=== PATIENT | female | born 1995 | race Caucasian/White ===

== ENCOUNTER 2023-09-13 22:27 | Emergency (ER) | payer SELFPAY ==
[2023-09-13 22:30] VITALS: BP 113/79
[2023-09-13] MEDS: DUONEB 3 ML INH ×2 (22:34→23:47)
[2023-09-13 23:30] VITALS: BP 112/65
[2023-09-14 00:30] VITALS: BP 110/62
--- NOTE | 2023-09-14 00:32 | ED.GENMED ---
History of Present Illness
General
Chief Complaint: Breathing Problem
Source: patient and family
Exam Limitations: none
Time Seen by Provider: 09/14/23 00:00
History of Present Illness
History of Present Illness:
Pleasant 27-year-old female presents with difficulty breathing. She reports shortness of breath with cough. Denies fever or chills. Patient has a history of asthma. Ran out of albuterol. Denies chest pain abdominal pain headache nausea or
vomiting.
Past History
Past History
ED Past Medical History: Asthma, Psychiatric (Depression) and Other (Irritable bowel syndrome, IBS, anemia, Migraines)
ED Past Surgical History: Other (Dental surgeries)
Social History
Tobacco: Non-smoker
Alcohol: None
Drug: None
Personal: Single
Living: with family
Review of Systems
Review of Systems
Allergies reviewed?: Yes
Other source history: family
All Other Systems: ROS reviewed and negative except as documented in HPI and ROS
Constitutional: Reports no symptoms
EENT: Reports no symptoms
Respiratory: Reports cough and trouble breathing
Cardiac: Reports no symptoms
ABD/GI: Reports no symptoms
: Reports no symptoms
Musculoskeletal: Reports no symptoms
Skin: Reports no symptoms
Neurological: Reports no symptoms
Endocrine: Reports no symptoms
Hematologic/Lymphatic: Reports no symptoms
Psychiatric: Reports no symptoms
Phy Exam
Physical Exam
Physical Exam:
Physical Exam
Vital signs and allergy list reviewed and agreed with.
GENERAL: Alert , in minimal to no apparent distress after breathing treatment
EYE: pupils equal, EOMI, anicteric
NECK: Supple, no significant adenopathy. No masses. Trachea midline
ENT: Oropharynx is clear, mmm.
CARDIAC: Regular rate and rhythm . No M/R/G
LUNGS: Clear breath sounds bilaterally, no acute respiratory distress, no wheezes/rales/rhonchi
ABDOMEN: Soft, without focal tenderness, no r/g,
NEUROLOGICAL: Alert and oriented, no focal neuro deficits
SKIN: Warm and dry, skin intact.
MUSCULOSKELETAL: No edema, well perfused. Moves all 4 extremities
PSYCH: Normal and appropriate interaction.
Course
Orders/Labs/Results
Orders:
Orders
09/13/23 22:31
Ipratropium/Albuterol Sulfate [Duoneb] 3 ml .ROUTE .STK-MED ONE
09/13/23 22:32
CR Chest - 2 Views Urgent
Comment:
Reason For Exam: SOB
09/13/23 22:33
Ipratropium/Albuterol Sulfate [Duoneb] 3 ml INH R NOW ONE
09/13/23 23:40
Ipratropium/Albuterol Sulfate [Duoneb] 3 ml INH R NOW ONE
09/14/23 00:29
Dexamethasone Pf [Decadron] 10 mg PO NOW STA
Vital Signs
Initial and Last Documented VS:
Initial Vital Signs
Pulse Resp BP Pulse Ox
107 25 113/79 100
09/13/23 22:30 09/13/23 22:30 09/13/23 22:30 09/13/23 22:30
Last Documented Vital Signs
Pulse Resp BP Pulse Ox
92 18 110/62 100
09/14/23 00:30 09/14/23 00:30 09/14/23 00:30 09/14/23 00:30
*Critical Care Note
Total Time (30-74mins, 75-104mins- exclusive of procedures): Not Applicable
ED Attending Note
-
Portions of this chart may have been created with voice recognition software.� Occasional wrong word or��sound alike� substitutions may have occurred due to the inherent limitations of voice recognition software.
Discharge Plan
Departure
Patient Disposition: Home (Routine Discharge)
Date of Disposition: 09/14/23
Time of Disposition: 00:59
Patient with high blood pressure during this ER visit?: No
Discharge Problem:
Asthma exacerbation
Instructions: Asthma, Adult (DC)
Prescriptions:
New
albuterol sulfate 90 mcg/actuation HFA aerosol inhaler
2 puff inhalation Q6H PRN (Reason: shortness of breath or wheezing) Qty: 8.5 0RF
prednisone 50 mg tablet
50 mg PO DAILY Qty: 4 0RF
No Action
sertraline 25 MG tablet
25 mg PO DAILY
Patient Comments:
taken with 50 mg
sertraline 50 mg tablet
50 mg PO DAILY
Patient Comments:
taken with 25 mg
Referrals:
[facility] [Outside]
[facility] [Outside]
NONE,* [Family Provider] -
Stand Alone Forms: Return to Work
Activity Restrictions/Additional Instructions:
Your prescriptions were sent electronically to the pharmacy that you specified.
It was a pleasure meeting you and taking part in your care. We hope for your continued healing and wellness.
Please read discharge instructions in their entirety. However, they are for general education and may not describe your exact diagnosis at discharge. Information on your ER visit and medical conditions were discussed with you along with appropriate
follow up information...
If indicated, please take your medications as instructed and indicated on discharge paperwork.
Please schedule a follow up appointment as directed. Call to schedule an appointment
Please return to the emergency department with ANY change in, persisting, or worsening of symptoms. If any of your symptoms do not improve, or persist, or become more severe within 6-12 hours, please return to the emergency department for further
care.
Please return to the emergency department if you develop a headache, neck pain/stiffness, fever greater than 100.4F, chest pain, shortness of breath, persistent nausea, vomiting, slurred speech, difficulty walking, numbness/tingling, weakness, signs
of infection or any other symptoms that are worrisome to you.
If you have any questions or concerns please do not hesitate to call the Hospital at or E-mail me directly at [email or web address]
Interventions
Interventions:
*Risk Screen - Suicide Last Done: 09/13/23 22:30
*General Assessment Last Done: 09/13/23 22:30
*Neglect/Abuse Screening Last Done: 09/13/23 22:30
ED- Fall Risk Assessment Last Done: 09/14/23 00:24
*ED COVID-19 Vaccine History Last Done: 09/14/23 01:00
*Nursing Disposition Last Done: 09/14/23 01:00
ED- Cardiac Assessment Last Done: 09/14/23 00:24
ED- Pulmonary Assessment Last Done: 09/14/23 00:24
Discharge Date and Time
Discharge Date/Time: 09/14/23 01:23
Print Language: BULGARIAN
[2023-09-14] MEDS: DECADRON 10 MG PO (00:40)
== END 2023-09-14 01:23 | disposition home or self-care (01) ==
LOC: EMR 22:27
PROVIDERS: EMERGENCY PHYSICIAN Student in an Organized Health Care Education/Training Program
DX: J45.901 Unspecified asthma with (acute) exacerbation (principal); F32.A Depression, unspecified; K58.9 Irritable bowel syndrome, unspecified; D64.9 Anemia, unspecified; G43.909 Migraine, unspecified, not intractable, without status migrainosus
CPT/HCPCS: 99284; 94640 ×2; 71046

== ENCOUNTER 2023-09-16 00:46 | Emergency (ER) | payer SELFPAY ==
[2023-09-16 00:47] VITALS: BP 100/62
[2023-09-16 02:00] VITALS: BP 162/145
[2023-09-16 02:11] VITALS: BP 94/58
[2023-09-16] MEDS: DUONEB 3 ML INH (02:40)
--- NOTE | 2023-09-16 02:57 | ED.GENMED ---
History of Present Illness
General
Chief Complaint: Breathing Problem
Source: patient, previous radiology exam (Chest x-ray 2 days ago showing hyperinflation otherwise unremarkable.) and previous hospital records (ED visit for similar complaint 2 days ago)
Exam Limitations: none
Time Seen by Provider: 09/16/23 02:12
Nursing documentation reviewed up to this point in time: agreed with
History of Present Illness
History of Present Illness:
This is a 27-year-old female has history of intermittent asthma, generally well-controlled and only requires as needed albuterol inhaler.
She presented to this ED 2 days ago with complaints of asthma exacerbation, cough, shortness of breath but has not had a fever, no sore throat. Symptoms improved with nebulizer treatment and a dose of Decadron, she was discharged to home with a
prescription for albuterol inhaler as well as 4 days prednisone 50 mg daily.
Chest x-ray during that visit showed moderate hyperinflation but no evidence of infiltrate.
She admits that cough has improved but she continues with chest tightness, difficulty breathing that is only temporized with albuterol inhaler. She has not had a fever. She complains of shortness of breath, tightness in her chest accompanied with
intermittent tingling of her fingers and toes, intermittent perioral tingling, intermittent lightheadedness.
She has had no leg pain or swelling. No recent travel.
She does not smoke cigarettes.
No close contacts with similar symptoms.
Past History
Past History
ED Past Medical History: Asthma, Psychiatric (Depression) and Other (Irritable bowel syndrome, IBS, anemia, Migraines)
ED Past Surgical History: Other (Dental surgeries)
Social History
Tobacco: Non-smoker
Alcohol: None
Drug: None
Personal: Single
Living: with family
Employment: Employed
Family History
Family History: Other (Noncontributory)
Phy Exam
Physical Exam
Physical Exam:
GENERAL: 27-year-old female appears her stated age, awake and alert, very mildly anxious, mildly hyperventilating but able to speak in full sentences. No cough appreciated during exam. Vital signs reviewed.
No resting tachypnea but patient noted to take frequent deep, deliberate inspirations.
EYE: anicteric
NECK: Supple, nontender, no meningismus, no significant adenopathy. No JVD.
ENT: posterior pharynx is clear, oral mucosa is moist. No rhinorrhea.
CARDIAC: Regular rate and rhythm. no murmur.
LUNGS: Clear breath sounds bilaterally, no acute respiratory distress, intermittent deep delivery inspirations noted, no wheezes/rales/rhonchi
ABDOMEN: Soft, nondistended, without focal tenderness, normoactive BS.
NEUROLOGICAL: Alert and oriented x3, no focal neuro deficits. No carpopedal spasm.
SKIN: Warm and dry, normal color, skin intact. No rash.
MUSCULOSKELETAL: No C/C/E. peripheral pulses are full and equal b/l. No palpable tenderness.
PSYCH: Mildly anxious. Cooperative. Easily communicative.
Scores
Heart Failure Risk
Heart Failure Risk Score: Not Applicable
Course
Orders/Labs/Results
Orders:
Orders
09/16/23 02:30
Electrocardiogram (*1) Urgent
Reason for Study: Chest Pain
EKG- Treatment ONCE
Ipratropium/Albuterol Sulfate [Duoneb] 3 ml INH R NOW STA
Vital Signs
Initial and Last Documented VS:
Initial Vital Signs
Temp Pulse Resp BP Pulse Ox
97.8 F 124 30 100/62 98
09/16/23 00:47 09/16/23 00:47 09/16/23 00:47 09/16/23 00:47 09/16/23 00:47
Last Documented Vital Signs
Temp Pulse Resp BP Pulse Ox
97.8 F 88 15 94/58 100
09/16/23 00:47 09/16/23 03:15 09/16/23 03:15 09/16/23 02:11 09/16/23 03:15
MDM/Problems Addressed
Differential Diagnosis Includes:
Concern for continued exacerbation of asthma versus hyperventilation syndrome.
Lungs are clear to auscultation and no cough appreciated currently but patient does note improvement in symptoms after albuterol inhaler thus will trial DuoNeb nebulizer.
Vital signs within normal limits and pulse ox is 99 to 100% on room air.
Due to complaints of chest discomfort, will check EKG.
No history of thromboembolism nor risk factors for such. Not maintained on control, non-smoker, no recent travel.
Chronic conditions affecting care: Asthma and Psychiatric illness
*Pulse Oximetry
Patient hypoxic: no
*EKG
Interpreted by ED Provider?: Yes
Interpretation: normal
Comparison EKG: no comparison EKG present
Rate: normal
Rhythm: sinus
[place]: normal axis
Interval: normal interval
QRS Pattern: normal QRS
Ischemia: no ischemia
*Vocational Training Teacher Interpretation
Rate: normal
Interpretation: normal
Rhythm: sinus
*Critical Care Note
Total Time (30-74mins, 75-104mins- exclusive of procedures): Not Applicable
Update Note
Update Note:
09/16/2023 0334 AM
Patient feeling improved after nebulizer treatment, resting comfortably. Respirations are easy and nonlabored.
No further paresthesias nor sense of chest tightness, difficulty breathing.
EKG is unremarkable.
Will discharge to home with portable nebulizer unit, prescription for albuterol Nebules and recommend she continue current prednisone prescription.
Discussed importance of staying well-hydrated on a daily basis.
Patient currently lacks healthcare coverage, does not have a family doctor, resides in [facility] thus recommend she follow-up with [facility] free clinic.
Return precautions discussed.
ED Attending Note
-
Portions of this chart may have been created with voice recognition software.� Occasional wrong word or��sound alike� substitutions may have occurred due to the inherent limitations of voice recognition software.
Discharge Plan
Departure
Patient Disposition: Home (Routine Discharge)
Date of Disposition: 09/16/23
Time of Disposition: 03:35
Patient with high blood pressure during this ER visit?: No
Condition: Good
Discharge Problem:
Asthma exacerbation
Instructions: Asthma, Adult (DC), How to Use a Nebulizer ED
Prescriptions:
New
albuterol sulfate 2.5 mg /3 mL (0.083 %) solution for nebulization
2.5 mg inhalation QID PRN (Reason: shortness of breath or wheezing) Qty: 50 0RF
No Action
sertraline 25 MG tablet
25 mg PO DAILY
Patient Comments:
taken with 50 mg
sertraline 50 mg tablet
50 mg PO DAILY
Patient Comments:
taken with 25 mg
albuterol sulfate 90 mcg/actuation HFA aerosol inhaler
2 puff inhalation Q6H PRN (Reason: shortness of breath or wheezing) Qty: 8.5 0RF
prednisone 50 mg tablet
50 mg PO DAILY Qty: 4 0RF
Referrals:
[facility] [Outside]
NONE,* [Family Provider] -
Interventions
Interventions:
*Risk Screen - Suicide Last Done: 09/16/23 00:47
*Neglect/Abuse Screening Last Done: 09/16/23 00:47
ED- Cardiac Assessment Last Done: 09/16/23 02:15
ED- Pulmonary Assessment Last Done: 09/16/23 02:15
Discharge Date and Time
Print Language: KAZAKH
== END 2023-09-16 04:15 | disposition home or self-care (01) ==
LOC: EMR 00:46
PROVIDERS: EMERGENCY PHYSICIAN Emergency Medicine
DX: J45.21 Mild intermittent asthma with (acute) exacerbation (principal)
CPT/HCPCS: 99283; 94640; 93005

== ENCOUNTER 2023-09-19 15:45 | Emergency (ER) | payer SELFPAY ==
[2023-09-19 15:48] VITALS: BP 102/76
--- NOTE | 2023-09-19 15:59 | ED.GENMED ---
History of Present Illness
<Keri Perez PA-C - Last Filed: 09/19/23 20:59>
General
Chief Complaint: Breathing Problem
Source: patient
Time Seen by Provider: 09/19/23 15:51
History of Present Illness
History of Present Illness:
27yoF with a history of asthma and depression presenting via EMS for evaluation of chest pain. Patient reports having ongoing shortness of breath over the past week. 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
an abrupt onset of substernal chest discomfort which she describes as squeezing. She called EMS due to her symptoms. She is feeling better currently. She is otherwise asymptomatic and denies any fevers, vomiting, diarrhea, cough, abdominal pain,
palpitations, syncope. She has been seen in the ED 2 previous times for these symptoms and was treated for asthma. She states her symptoms do not feel like her typical asthma symptoms.
Past History
<Keri Perze PA-C - Last Filed: 09/19/23 20:59>
Past History
ED Past Medical History: Asthma, Psychiatric (Depression) and Other (Irritable bowel syndrome, IBS, anemia, Migraines)
ED Past Surgical History: Other (Dental surgeries)
Social History
Tobacco: Non-smoker
Alcohol: None
Drug: None
Personal: Single
Living: with family
Employment: Employed
Family History
Family History: Other (Noncontributory)
Phy Exam
<Keri Perez PA-C - Last Filed: 09/19/23 20:59>
General Physical Exam
General Presentation: well appearing and no apparent distress
General age: appears stated age
General Skin: warm and dry
General Habitus: normal
General Mental: alert
Cardiovascular Exam
Cardiovascular Exam: regular rate/rhythm, no edema and no murmur
Pulmonary Exam
Pulmonary Exam: lungs clear, no respiratory distress, no rales, no crackles, no rhonchi and no wheezing
Gastrointestinal Exam
Gastrointestinal Exam: non tender, soft and non distended
Musculoskeletal Exam
Musculoskeletal Exam: no edema
Skin Exam
Skin Exam: normal color and warm/dry
Psychiatric Exam
Psychiatric Exam: normal mood/affect
Course
<Keri Perez PA-C - Last Filed: 09/19/23 20:59>
Orders/Labs/Results
Orders:
Orders
09/19/23 15:59
Electrocardiogram (*1) Urgent
Reason for Study: Chest Pain
Cardiac Monitoring- Treatment ONCE
EKG- Treatment ONCE
09/19/23 16:04
Complete Blood Count/With Diff Urgent
Comprehensive Metabolic Panel Urgent
D-Dimer Urgent
HCG, Serum Qualitative Screen Urgent
Comment: ADD ON
Magnesium Urgent
Comment: ADD ON
Troponin I Urgent
09/19/23 16:41
Potassium Chloride [KCl] 40 meq PO NOW STA
09/19/23 16:42
CT Chest Pe Study Urgent
Comment:
Reason For Exam: SOB, elevated D-dimer
09/19/23 16:47
Magnesium Sulfate 1 grams 0.9% Sodium Chloride 100 ml [Nss] 100 ml IV NOW
Potassium Chloride [KCl] 20 meq 0.9% Sodium Chloride 150 ml [Nss] 150 ml IV NOW
09/19/23 17:03
Test Result ONCE
09/19/23 17:09
Add On- LAB Urgent
Tests Added?: hcg qual.
09/19/23 19:11
Add On- LAB Urgent
Tests Added?: magnesium
09/19/23 19:14
Lactated Ringers [Lr] 1,000 ml IV BOLUS
09/19/23 19:23
Potassium Chloride [KCl] 20 meq PO NOW STA
Abnormal Lab Results
09/19/23
16:04
RBC 3.57 L 10^6/uL
(4.20-5.40)
Hgb 10.7 L g/dL
(12.0-16.0)
Hct 31.0 L %
(37.0-47.0)
MPV 10.8 H fL
(7.4-10.4)
D-Dimer 1.39 H ug/mlFEU
(0.00-0.50)
Potassium 2.6 L* mmol/L
(3.5-5.1)
Chloride 114 H mmol/L
(98-107)
Carbon Dioxide 17 L mmol/L
(22-30)
AST 12 L U/L
(14-36)
09/19/23 16:04
09/19/23 16:04
Vital Signs
Initial and Last Documented VS:
Initial Vital Signs
Temp Pulse Resp BP Pulse Ox
98.4 F 84 20 102/76 99
09/19/23 15:48 09/19/23 15:48 09/19/23 15:48 09/19/23 15:48 09/19/23 15:48
Last Documented Vital Signs
Temp Pulse Resp BP Pulse Ox
98.4 F 84 20 103/78 97
09/19/23 15:48 09/19/23 15:48 09/19/23 15:48 09/19/23 20:00 09/19/23 20:16
<Ted Corcoran, DO - Last Filed: 09/19/23 19:21>
Orders/Labs/Results
Orders:
Orders
09/19/23 15:59
Electrocardiogram (*1) Urgent
Reason for Study: Chest Pain
Cardiac Monitoring- Treatment ONCE
EKG- Treatment ONCE
09/19/23 16:04
Complete Blood Count/With Diff Urgent
Comprehensive Metabolic Panel Urgent
D-Dimer Urgent
HCG, Serum Qualitative Screen Urgent
Comment: ADD ON
Magnesium Urgent
Comment: ADD ON
Troponin I Urgent
09/19/23 16:41
Potassium Chloride [KCl] 40 meq PO NOW STA
09/19/23 16:42
CT Chest Pe Study Urgent
Comment:
Reason For Exam: SOB, elevated D-dimer
09/19/23 16:47
Magnesium Sulfate 1 grams 0.9% Sodium Chloride 100 ml [Nss] 100 ml IV NOW
Potassium Chloride [KCl] 20 meq 0.9% Sodium Chloride 150 ml [Nss] 150 ml IV NOW
09/19/23 17:03
Test Result ONCE
09/19/23 17:09
Add On- LAB Urgent
Tests Added?: hcg qual.
09/19/23 19:11
Add On- LAB Urgent
Tests Added?: magnesium
09/19/23 19:14
Lactated Ringers [Lr] 1,000 ml IV BOLUS
09/19/23 19:23
Potassium Chloride [KCl] 20 meq PO NOW STA
Abnormal Lab Results
09/19/23
16:04
RBC 3.57 L 10^6/uL
(4.20-5.40)
Hgb 10.7 L g/dL
(12.0-16.0)
Hct 31.0 L %
(37.0-47.0)
MPV 10.8 H fL
(7.4-10.4)
D-Dimer 1.39 H ug/mlFEU
(0.00-0.50)
Potassium 2.6 L* mmol/L
(3.5-5.1)
Chloride 114 H mmol/L
(98-107)
Carbon Dioxide 17 L mmol/L
(22-30)
AST 12 L U/L
(14-36)
09/19/23 16:04
09/19/23 16:04
Vital Signs
Initial and Last Documented VS:
Initial Vital Signs
Temp Pulse Resp BP Pulse Ox
98.4 F 84 20 102/76 99
09/19/23 15:48 09/19/23 15:48 09/19/23 15:48 09/19/23 15:48 09/19/23 15:48
Last Documented Vital Signs
Temp Pulse Resp BP Pulse Ox
98.4 F 84 20 103/78 97
09/19/23 15:48 09/19/23 15:48 09/19/23 15:48 09/19/23 20:00 09/19/23 20:16
<Keri Perez PA-C - Last Filed: 09/19/23 20:59>
MDM/Problems Addressed
Differential Diagnosis Includes:
27yoF here with chest pain and shortness of breath. Seen in the ED 2x within the past week for the same. Chest pain recurred about an hour ago and she arrives via EMS. Hx of asthma although she denies any wheezing. She is afebrile and
hemodynamically stable. Oxygen saturation 99% on room air. She is well appearing in no distress. Lungs CTA. Differential diagnosis includes but is not limited to: pneumonia, pneumothorax, PE, arrhythmia, electrolyte abnormality, doubt ACS
Initial ED plan: Check cardiac labs, D-dimer, and EKG.
<Keri Perez PA-C - Last Filed: 09/19/23 20:59>
*EKG
EKG Intrepretation Date: 09/19/23
Heart Rate: 83
Rate: normal
Rhythm: sinus
[place]: normal axis
QRS Pattern: normal QRS
Ischemia: other (Nonspecific T wave changes in inferior leads)
*Critical Care Note
Total Time (30-74mins, 75-104mins- exclusive of procedures): Not Applicable
<Keri Perez PA-C - Last Filed: 09/19/23 20:59>
Update Note
Update Note:
EKG shows NSR with nonspecific T wave changes. Troponin is normal. Potassium is significantly low at 2.6. Hypokalemia may be related to albuterol use. She denies any vomiting or diarrhea and reports normal PO intake. IV/PO potassium repletion as
well as magnesium replacement ordered. D-dimer elevated and CTA chest subsequently ordered which is negative for PE.
Patient reassessed multiple times and she continues to be asymptomatic without any further shortness of breath or chest pain. Vital signs remain stable. Offered admission for her hypokalemia which she declines. She states that she cannot afford to
miss work. Advised patient to increase potassium rich foods in her diet. She was instructed to f/u with her PCP tomorrow and to have repeat blood work later this week. ED return precautions discussed. She was discharged in stable condition.
ED Attending Note
<Keri Perez PA-C - Last Filed: 09/19/23 20:59>
-
Portions of this chart may have been created with voice recognition software.� Occasional wrong word or��sound alike� substitutions may have occurred due to the inherent limitations of voice recognition software.
<Ted Corcoran DO - Last Filed: 09/19/23 19:21>
ED Attending Note
Patient seen and examined by attending physician: Yes
I performed the substantive portion of visit, reviewed & personally made and approve the management plan that is documented in note by myself or DANIEL.: Yes
I performed a history and physical exam of patient and discussed management with resident, I reviewed resident's note and agree with documented findings and plan of care.: Yes
ED Attending Note:
I evaluated the patient at bedside. The patient is in no respiratory distress. CTA has ruled out PE. She does use 2 albuterol inhalers every 6 hours and was also given nebs here the other day. Suspect albuterol use as the cause of her
hypokalemia. Given the degree of hypokalemia I offered and considered admitting patient to hospital however the patient states that she cannot afford to be out of work. She strongly prefers outpatient management which I feel is reasonable. Bicarb
is low and we did give her some IV fluids as well.
Discharge Plan
Departure
Patient Disposition: Home (Routine Discharge)
Date of Disposition: 09/19/23
Time of Disposition: 19:56
Patient with high blood pressure during this ER visit?: No
Discharge Problem:
Shortness of breath, Hypokalemia
Instructions: Hypokalemia, High-potassium diet
Prescriptions:
No Action
sertraline 25 MG tablet
75 mg PO DAILY
doxepin 10 mg Capsule
10 mg PO HSPRN PRN (Reason: sleep)
albuterol sulfate 2.5 mg /3 mL (0.083 %) solution for nebulization
2.5 mg inhalation R QIDPRN PRN (Reason: shortness of breath or wheezing)
albuterol sulfate 90 mcg/actuation HFA aerosol inhaler
2 puff inhalation R Q6HPRN PRN (Reason: shortness of breath or wheezing)
Referrals:
NONE,* [Family Provider] -
Stand Alone Forms: Return to Work
Activity Restrictions/Additional Instructions:
Drink plenty of fluids. Increase your potassium in your diet.
Please follow-up with your family doctor and have repeat blood work later this week to monitor your potassium levels.
Return to the ER with any worsening symptoms.
Interventions
Interventions:
*Risk Screen - Suicide Last Done: 09/19/23 15:48
*General Assessment Last Done: 09/19/23 15:48
*Neglect/Abuse Screening Last Done: 09/19/23 15:48
ED- Fall Risk Assessment Last Done: 09/19/23 16:12
*Nursing Disposition Last Done: 09/19/23 20:01
ED- Cardiac Assessment Last Done: 09/19/23 16:12
ED- Pulmonary Assessment Last Done: 09/19/23 16:12
Discharge Date and Time
Discharge Date/Time: 09/19/23 20:58
Print Language: ANGUILLAN
[2023-09-19 16:00] VITALS: BP 99/81
[2023-09-19 16:14] LABS: % Basophils 0.5 % (0-2); % Eosinophils 1.5 % (0-6); % Immature Granulocytes 0.5 % (0-0.5); % Lymphocytes 36.9 % (20.5-51.1); % Monocytes 6.8 % (1.7-9.3); % Neutrophils 53.8 % (42.2-75.2); Absolute Eosinophils 0.1 10^3/uL (0-0.7); Absolute Lymphocytes 2.4 10^3/uL (1.2-3.4); Absolute Monocytes 0.4 10^3/uL (0.1-0.6); Absolute Neutrophils 3.5 10^3/uL (1.4-6.5); Hemoglobin 10.7 g/dL (12.0-16.0); Mean Corp Hgb Conc. 34.5 g/dL (33.0-37.0); Mean Corpuscular Volume 86.8 fL (81.0-99.0); Mean Platelet Volume 10.8 fL (7.4-10.4); Nucleated Red Blood Cells % 0 %; Platelet Count 237 10^3/uL (130-400); Red Blood Cell Count 3.57 10^6/uL (4.20-5.40); Red Cell Dist. Width 13.8 % (11.5-14.5); White Blood Cell Count 6.5 10^3/uL (4.8-10.8)
[2023-09-19 16:27] LABS: D-Dimer 1.39 ug/mlFEU (0.00-0.50)
[2023-09-19 16:34] LABS: ALT (SGPT) 11 U/L (0-35); AST (SGOT) 12 U/L (14-36); Albumin 3.9 g/dl (3.5-5.0); Alkaline Phosphatase 38 U/L (38-126); Blood Urea Nitrogen 10 mg/dl (7-17); Calcium 9.7 mg/dl (8.4-10.2); Carbon Dioxide 17 mmol/L (22-30); Chloride 114 mmol/L (98-107); Glucose 70 mg/dl (70-99); Potassium 2.6 mmol/L (3.5-5.1); Sodium 141 mmol/L (135-145); Total Bilirubin 0.6 mg/dl (0.2-1.3); Total Protein 6.7 g/dl (6.3-8.2); eGFR > 60.00
[2023-09-19 16:41] LABS: Troponin I < 0.012 ng/ml
[2023-09-19] MEDS: MAGNESIUM SULFATE 102 GRAMS IV (17:39)
[2023-09-19] MEDS: KCL 40 MEQ PO (17:39)
[2023-09-19] MEDS: KCL 160 MEQ IV (17:40)
[2023-09-19 18:01] LABS: HCG, Serum Qualitative Screen Negative
[2023-09-19 19:01] VITALS: BP 90/68
[2023-09-19] MEDS: LR 1000 IV (19:23)
[2023-09-19 19:46] LABS: Magnesium 2.2 mg/dl (1.6-2.3)
[2023-09-19 20:00] VITALS: BP 103/78
[2023-09-19] MEDS: KCL 20 MEQ PO (20:19)
== END 2023-09-19 20:58 | disposition home or self-care (01) ==
LOC: EMR 15:45
PROVIDERS: Physician Assistant; EMERGENCY PHYSICIAN Student in an Organized Health Care Education/Training Program
DX: R06.02 Shortness of breath (principal); E87.6 Hypokalemia; J45.909 Unspecified asthma, uncomplicated; F32.A Depression, unspecified; K58.9 Irritable bowel syndrome, unspecified; D64.9 Anemia, unspecified
CPT/HCPCS: 99284; 96365; 96361; 71275; 80053; 83735; 84484; 84703; 85025; 85379; 93005; Q9967

== ENCOUNTER 2024-02-27 15:41 | Emergency (ER) | payer SELFPAY ==
[2024-02-27 15:43] VITALS: BP 128/94
--- NOTE | 2024-02-27 17:16 | ED.GENMED ---
History of Present Illness
General
Chief Complaint: Cough
Source: patient
Exam Limitations: none
Time Seen by Provider: 02/27/24 15:54
Nursing documentation reviewed up to this point in time: agreed with
History of Present Illness
History of Present Illness:
28-year-old female presenting to the emergency department for evaluation of cough. Patient states she has had cough for about 3 to 4 days. It is mostly dry with occasional sputum production which is clear to yellow. She has had a mild sore
throat. No fevers, chills, chest pain, or shortness of breath. No hemoptysis. No GI symptoms. No urinary symptoms. No known sick contacts. Patient has been trying [id number] medications at home with very minimal improvement in cough.
Her neighbor did tell her that she may have bronchitis and came to the emergency department for further evaluation.
Patient's last menstrual period began 2 days ago.
Past History
Past History
ED Past Medical History: Asthma, Psychiatric (Depression) and Other (Irritable bowel syndrome, IBS, anemia, Migraines)
ED Past Surgical History: Other (Dental surgeries)
Social History
Tobacco: Non-smoker
Alcohol: None
Drug: None
Personal: Single
Living: with family
Employment: Employed
Family History
Family History: Other (Noncontributory)
Review of Systems
Review of Systems
Allergies reviewed?: Yes
All Other Systems: ROS reviewed and negative except as documented in HPI and ROS
Phy Exam
Physical Exam
Physical Exam:
Vitals: Patient's vital signs are stable. Afebrile
General: Patient is very well appearing, no acute distress. Nontoxic appearing
Skin: Warm and dry, no rashes or lesions
Head: Normocephalic, atraumatic
Eyes: Sclera nonicteric. EOMs intact. No nystagmus.
Throat: Very mild pharyngeal erythema not any tonsillar edema or exudates. No DIRECTOR OF AGRICULTURE. Uvula midline. Protecting airway. Very poor dentition and oral hygiene
Neck: Normal ROM, no cervical spine tenderness, no meningismus
Cardiac: Regular rate and rhythm, no murmurs. No reproducible chest wall tenderness
Pulm: Normal respiratory effort, no wheezes, rales, rhonchi heard on exam. O2 saturation 99 on room air
Abdomen: Abdomen soft. No abdominal tenderness.
Extremities: No evidence of cyanosis or edema. Palpable DP pulses
Neuro: AAOx3. Grossly intact.
Psychiatric: Normal affect.
Course
Orders/Labs/Results
Orders:
Orders
02/27/24 16:49
Ibuprofen [Motrin] 400 mg PO NOW STA
CR Chest - 2 Views Urgent
Comment:
Reason For Exam: cough
02/27/24 17:09
COVID-19 Antigen Urgent
Source: Nasal Swab
Influenza A+B Rapid Molecular Urgent
LISHA Source: Nasal Swab
Specimen Description:
Vital Signs
Initial and Last Documented VS:
Initial Vital Signs
Temp Pulse Resp BP Pulse Ox
98.3 F 97 20 128/94 99
02/27/24 15:43 02/27/24 15:43 02/27/24 15:43 02/27/24 15:43 02/27/24 15:43
Last Documented Vital Signs
Temp Pulse Resp BP Pulse Ox
98.3 F 95 18 130/89 99
02/27/24 15:43 02/27/24 18:20 02/27/24 18:20 02/27/24 18:20 02/27/24 18:20
MDM/Problems Addressed
Differential Diagnosis Includes:
Not limited to: Viral bronchitis, pneumonia, viral pharyngitis, costochondritis, asthma exacerbation, etc.
MDM/Problems Addressed:
28-year-old female presenting with viral URI symptoms for the past 3 to 4 days. Most concerned with ongoing cough that is mainly nonproductive. No history of fever or hemoptysis. No chest pain or shortness of breath. Patient is stable vital
signs on arrival, she is afebrile. On exam�patient is very well-appearing, in no apparent distress. Patient has no evidence of bacterial pharyngitis or DIRECTOR OF A[employer]IC[employer]URE. She is protecting her airway. Heart regular rate and rhythm. Patient has clear lungs
bilaterally without any wheeze. She is in no apparent respite distress with an oxygen saturation of 99 on room air. No clinical evidence of DVT on exam. Benign abdomen. Suspect likely viral pharyngitis. Will check viral swabs and obtain chest
x-ray to rule out possible pneumonia. Will give Motrin. Anticipate discharge home
Chronic conditions affecting care:
N/A
Acute Exacerbation and/or Progression of Chronic Illness:
N/A
*Radiology
Radiology exam reviewed: preliminary read by ED provider (Reviewed by me-no acute abnormality, no pneumonia or pneumothorax)
*Pulse Oximetry
Patient hypoxic: no
*EKG
Interpreted by ED Provider?: NA
*Java Flex Developer Interpretation
Rate: Java Flex Developer- N/A
*Critical Care Note
Total Time (30-74mins, 75-104mins- exclusive of procedures): Not Applicable
Update Note
Update Note:
Update: Viral swabs negative. Chest x-ray shows no evidence of pneumonia or acute disease. Do suspect likely viral pharyngitis. She remains very well-appearing in no apparent distress with stable vital signs. Feel patient is stable for discharge
home. Will send albuterol inhaler for her to use as needed for persistent cough. Did give patient information for [facility] to follow-up with given she has no insurance. Return precautions discussed at length. Patient and patient's
comfortable with plan. Case discussed with attending physician.
ED Attending Note
-
Portions of this chart may have been created with voice recognition software.� Occasional wrong word or��sound alike� substitutions may have occurred due to the inherent limitations of voice recognition software.
Discharge Plan
Departure
Patient Disposition: Home (Routine Discharge)
Date of Disposition: 02/27/24
Time of Disposition: 17:59
Patient with high blood pressure during this ER visit?: Yes
Condition: Good
Covid-19: Negative COVID-19
Discharge Problem:
Acute bronchitis, viral
Instructions: Acute Bronchitis, Adult (DC), Cough, Adult (DC), BLOOD PRESSURE
Prescriptions:
New
albuterol sulfate 90 mcg/actuation HFA aerosol inhaler
2 puff inhalation Q6H PRN (Reason: cough) Qty: 6.7 0RF
No Action
sertraline 25 MG tablet
75 mg PO DAILY
doxepin 10 mg Capsule
10 mg PO HSPRN PRN (Reason: sleep)
albuterol sulfate 2.5 mg /3 mL (0.083 %) solution for nebulization
2.5 mg inhalation R QIDPRN PRN (Reason: shortness of breath or wheezing)
albuterol sulfate 90 mcg/actuation HFA aerosol inhaler
2 puff inhalation R Q6HPRN PRN (Reason: shortness of breath or wheezing)
Referrals:
[facility] [Provider Group]
[facility] [Outside]
NONE,* [Family Provider] -
Stand Alone Forms: Back to School, Return to Work
Activity Restrictions/Additional Instructions:
RETURN TO THE EMERGENCY DEPARTMENT WITH FEVERS, CHEST PAIN, SHORTNESS OF BREATH, COUGHING UP BLOOD, WORSENING IN CURRENT SYMPTOMS, OR ANY OTHER CONCERNS
-Continued emergency department today for evaluation of cough. You likely have a viral bronchitis.
-I have sent a prescription for an albuterol inhaler that you can use every 6 hours as needed for cough. You can continue to use [id number] decongestions. You can take Motrin and/or Tylenol as needed for any fever, discomfort.
-Is important stay very well-hydrated
-Follow-up with primary care for further evaluation/management to ensure that symptoms are improving. I have given the names to the family residency program in the free [facility] above.
Monitor your symptoms closely and return to the emergency department any acute worsening/new symptoms or any other concerns
Interventions
Interventions:
*Risk Screen - Suicide Last Done: 02/27/24 15:43
*General Assessment Last Done: 02/27/24 15:43
*Neglect/Abuse Screening Last Done: 02/27/24 15:43
*ED COVID-19 Vaccine History Last Done: 02/27/24 16:04
*Nursing Disposition Last Done: 02/27/24 18:20
ED- Pulmonary Assessment Last Done: 02/27/24 16:04
Discharge Date and Time
Discharge Date/Time: 02/27/24 18:21
Print Language: SWEDISH
[2024-02-27] MEDS: MOTRIN 400 MG PO (17:29)
[2024-02-27 17:30] LABS: COVID-19 Antigen Negative (Negative)
[2024-02-27 18:20] VITALS: BP 130/89
== END 2024-02-27 18:21 | disposition home or self-care (01) ==
LOC: EMR 15:41
PROVIDERS: Physician Assistant; EMERGENCY PHYSICIAN Student in an Organized Health Care Education/Training Program
DX: J20.8 Acute bronchitis due to other specified organisms (principal); B97.89 Other viral agents as the cause of diseases classified elsewhere; Z11.52 Encounter for screening for COVID-19; R03.0 Elevated blood-pressure reading, without diagnosis of hypertension; R51.9 Headache, unspecified; J45.909 Unspecified asthma, uncomplicated; K58.9 Irritable bowel syndrome, unspecified; G43.909 Migraine, unspecified, not intractable, without status migrainosus; F32.A Depression, unspecified; K50.90 Crohn's disease, unspecified, without complications; Z59.71 Insufficient health insurance coverage; Z91.018 Allergy to other foods
CPT/HCPCS: 99283; 71046; 87502; 87811

== ENCOUNTER 2024-04-04 05:54 | Emergency (ER) | payer SELFPAY ==
[2024-04-04 05:57] VITALS: BP 116/82
[2024-04-04 06:17] VITALS: BMI 20.2
[2024-04-04 06:46] LABS: % Basophils 0.4 % (0-2); % Eosinophils 2.1 % (0-6); % Immature Granulocytes 0.2 % (0-0.5); % Lymphocytes 32.1 % (20.5-51.1); % Monocytes 7.6 % (1.7-9.3); % Neutrophils 57.6 % (42.2-75.2); Absolute Eosinophils 0.1 10^3/uL (0-0.7); Absolute Lymphocytes 1.5 10^3/uL (1.2-3.4); Absolute Monocytes 0.4 10^3/uL (0.1-0.6); Absolute Neutrophils 2.7 10^3/uL (1.4-6.5); Hematocrit 32.5 % (37.0-47.0); Hemoglobin 10.6 g/dL (12.0-16.0); Mean Corp Hgb Conc. 32.6 g/dL (33.0-37.0); Mean Platelet Volume 11.3 fL (7.4-10.4); Nucleated Red Blood Cells % 0 %; Platelet Count 174 10^3/uL (130-400); Red Blood Cell Count 3.65 10^6/uL (4.20-5.40); Red Cell Dist. Width 15.1 % (11.5-14.5); White Blood Cell Count 4.7 10^3/uL (4.8-10.8)
[2024-04-04 06:54] LABS: HCG, Serum Qualitative Screen Negative
[2024-04-04 06:59] LABS: ALT (SGPT) 13 U/L (0-35); AST (SGOT) 18 U/L (14-36); Alkaline Phosphatase 37 U/L (38-126); Blood Urea Nitrogen 6 mg/dl (7-17); Calcium 8.9 mg/dl (8.4-10.2); Carbon Dioxide 25 mmol/L (22-30); Chloride 107 mmol/L (98-107); Estimated Creatinine Clearance 108 ml/min; Glucose 100 mg/dl (70-99); Potassium 3.9 mmol/L (3.5-5.1); Sodium 141 mmol/L (135-145); Total Bilirubin 0.4 mg/dl (0.2-1.3); Total Protein 6.9 g/dl (6.3-8.2); eGFR > 60.00
--- NOTE | 2024-04-04 07:03 | ED.GENMED ---
History of Present Illness
General
Chief Complaint: Abdominal Pain
Time Seen by Provider: 04/04/24 06:38
History of Present Illness
History of Present Illness:
28-year-old female history of migraines, asthma, IBS, Crohn's presenting with periumbilical sharp stabbing pain with associated nausea and multiple episodes of nonbloody vomiting starting overnight. Patient states that she has similar symptoms few
years ago but never followed up with a specialist. Patient denies diarrhea, fever, or sick contacts. LMP 1 week ago
Past History
Past History
ED Past Medical History: Asthma, Psychiatric (Depression) and Other (Irritable bowel syndrome, IBS, anemia, Migraines)
ED Past Surgical History: Other (Dental surgeries)
Social History
Tobacco: Non-smoker
Alcohol: None
Drug: None
Personal: Single
Living: with family
Employment: Employed
Family History
Family History: Other (Noncontributory)
Phy Exam
Physical Exam
Physical Exam:
General: Alert, no acute distress
Head: NCAT
Eyes: clear conjunctiva
Neck: supple
Cardiac: regular rate and rhythm, no murmur
Lungs: clear to auscultation bilaterally. No wheezes, rales, or rhonchi. Speaking full unlabored sentences. No respiratory distress.
Abdomen: soft, nondistended diffusely tender.
MSK: no lower extremity edema bilaterally. No deformity
Skin: warm, dry
Neuro: Alert and oriented x3. no focal deficits
Course
Orders/Labs/Results
Orders:
Orders
04/04/24 06:26
Test Result ONCE
04/04/24 06:32
Complete Blood Count/With Diff Urgent
Comprehensive Metabolic Panel Urgent
HCG, Serum Qualitative Screen Urgent
Lipase Urgent
Comment: ADDED
04/04/24 06:54
Add On- LAB Urgent
Tests Added?: lipase
04/04/24 07:01
CT Abd/pel W Iv And Oral Contr Urgent
Comment:
Reason For Exam: periumbilical pain, n/v
Iohexol [Omnipaque] See Protocol PO NOW STA
Ondansetron Injectable [Zofran] 4 mg IV NOW STA
04/04/24 07:02
0.9% Sodium Chloride 1000 ml [Nss] 1,000 ml IV BOLUS
04/04/24 07:48
Ketorolac [Toradol] 15 mg IV NOW STA
Abnormal Lab Results
04/04/24
06:32
WBC 4.7 L 10^3/uL
(4.8-10.8)
RBC 3.65 L 10^6/uL
(4.20-5.40)
Hgb 10.6 L g/dL
(12.0-16.0)
Hct 32.5 L %
(37.0-47.0)
MCHC 32.6 L g/dL
(33.0-37.0)
RDW 15.1 H %
(11.5-14.5)
MPV 11.3 H fL
(7.4-10.4)
BUN 6 L mg/dl
(7-17)
Glucose 100 H mg/dl
(70-99)
Alkaline Phosphatase 37 L U/L
(38-126)
04/04/24 06:32
04/04/24 06:32
Vital Signs
Initial and Last Documented VS:
Initial Vital Signs
Temp Pulse Resp BP Pulse Ox
98.9 F 98 24 116/82 100
04/04/24 05:57 04/04/24 05:57 04/04/24 05:57 04/04/24 05:57 04/04/24 05:57
Last Documented Vital Signs
Temp Pulse Resp BP Pulse Ox
98.9 F 75 16 99/70 100
04/04/24 05:57 04/04/24 12:03 04/04/24 12:03 04/04/24 12:03 04/04/24 12:03
MDM/Problems Addressed
Differential Diagnosis Includes:
Appendicitis, gastroenteritis, diverticulitis, colitis
MDM/Problems Addressed:
Results reviewed. Labs unremarkable. CT abdomen/pelvis shows possible gastritis as read by radiology. Discussed results with pt at bedside. Pt tolerating PO with no further episodes of vomiting in ER. Hemodynamically stable. Suspect gastritis.
Advised to take pepcid/maalox, follow up with PCP/GI. Discussed return precautions. Pt expressed verbal understanding.
*Critical Care Note
Total Time (30-74mins, 75-104mins- exclusive of procedures): Not Applicable
ED Attending Note
-
Portions of this chart may have been created with voice recognition software.� Occasional wrong word or��sound alike� substitutions may have occurred due to the inherent limitations of voice recognition software.
Discharge Plan
Departure
Patient Disposition: Home (Routine Discharge)
Date of Disposition: 04/04/24
Time of Disposition: 11:49
Patient with high blood pressure during this ER visit?: No
Discharge Problem:
Gastritis
Instructions: Gastritis (DC)
Prescriptions:
New
ondansetron 4 mg tablet,disintegrating
4 mg PO Q8H PRN (Reason: nausea and vomiting) 5 Days Qty: 20 0RF
No Action
sertraline 25 MG tablet
75 mg PO DAILY
doxepin 10 mg Capsule
10 mg PO HSPRN PRN (Reason: sleep)
albuterol sulfate 2.5 mg /3 mL (0.083 %) solution for nebulization
2.5 mg inhalation R QIDPRN PRN (Reason: shortness of breath or wheezing)
albuterol sulfate 90 mcg/actuation HFA aerosol inhaler
2 puff inhalation R Q6HPRN PRN (Reason: shortness of breath or wheezing)
albuterol sulfate 90 mcg/actuation HFA aerosol inhaler
2 puff inhalation Q6H PRN (Reason: cough) Qty: 6.7 0RF
Referrals:
Rojas Dickinson MD [Active] -
NONE,* [Family Provider] -
Stand Alone Forms: Return to Work
Activity Restrictions/Additional Instructions:
Take pepcid and maalox as needed for abdominal pain
Take Zofran as needed for nausea/vomiting
Follow-up with primary care doctor in 1 to 2 days. Follow-up with GI if no improvement in 1 week
Return to the emergency department for inability to tolerate liquids, blood in vomit/stool or new/worsening symptoms
Interventions
Interventions:
*Risk Screen - Suicide Last Done: 04/04/24 05:57
*General Assessment Last Done: 04/04/24 06:17
*Neglect/Abuse Screening Last Done: 04/04/24 05:57
ED- Fall Risk Assessment Last Done: 04/04/24 06:17
*ED COVID-19 Vaccine History Last Done: 04/04/24 06:17
*Nursing Disposition Last Done: 04/04/24 12:03
IR-Tcrncq-Hdvvxedjta Assessment Last Done: 04/04/24 06:17
Discharge Date and Time
Discharge Date/Time: 04/04/24 12:04
Print Language: POLISH
[2024-04-04] MEDS: OMNIPAQUE 50 ML PO (07:15)
[2024-04-04] MEDS: ZOFRAN 4 MG IV (07:16)
[2024-04-04] MEDS: NSS 1000 IV (07:16)
[2024-04-04 07:49] LABS: Lipase 84 U/L (23-300)
[2024-04-04] MEDS: TORADOL 15 MG IV (07:56)
[2024-04-04 12:03] VITALS: BP 99/70
== END 2024-04-04 12:04 | disposition home or self-care (01) ==
LOC: EMR 05:54
PROVIDERS: Emergency Medicine; EMERGENCY PHYSICIAN Emergency Medicine
DX: K29.70 Gastritis, unspecified, without bleeding (principal); J45.909 Unspecified asthma, uncomplicated
CPT/HCPCS: 99285; 96374; 96375; 74177; 80053; 83690; 84703; 85025; Q9967

== ENCOUNTER 2024-10-18 00:32 | Emergency (ER) | payer SELFPAY ==
[2024-10-18 00:34] VITALS: BP 116/82
--- NOTE | 2024-10-18 01:18 | ED.GENMED ---
History of Present Illness
General
Chief Complaint: Musculo-Skeletal Complaint
Source: patient
Exam Limitations: none
Time Seen by Provider: 10/18/24 01:02
Nursing documentation reviewed up to this point in time: agreed with
History of Present Illness
History of Present Illness:
28-year-old female with history as noted presents for evaluation of left shoulder pain. Patient reports that she has had chronic pains in her left shoulder is related to rotator cuff tear diagnosed on MRI a few years ago. She says that over the
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 She denies any acute/new injury or trauma. She denies any other acute complaints.
Past History
Past History
ED Past Medical History: Asthma, Psychiatric (Depression) and Other (Irritable bowel syndrome, IBS, anemia, Migraines)
ED Past Surgical History: Other (Dental surgeries)
Social History
Tobacco: Non-smoker
Alcohol: None
Drug: None
Personal: Single
Living: with family
Employment: Employed
Family History
Family History: Other (Noncontributory)
Review of Systems
Review of Systems
All Other Systems: ROS reviewed and negative except as documented in HPI and ROS
Musculoskeletal: Reports joint pain
Neurological: Denies weakness or numbness
Phy Exam
Physical Exam
Physical Exam:
General: Well appearing and non-toxic
HEENT: protecting airway
Neck: appears supple
CV: No evidence of cyanosis
Resp: No accessory muscle use
Abd: Non-distended
Extremities: No deformities, on exam of the left arm: Mild tenderness along the distal trapezius, posterior humeral head; no tenderness along clavicle, no significant scapular tenderness, no tenderness of the distal humerus, elbow or wrist; she does
have full range of motion of the left shoulder although has pain particularly with full extension and with external rotation; she has a strong left radial pulse, motor and sensory intact radial, median, ulnar nerve distribution left upper extremity
Neuro: Alert
Psych: Normal affect
Skin: Intact
Scores
Heart Failure Risk
Heart Failure Risk Score: Not Applicable
Heart Score for Chest Pain Patients
STEMI patient?: Not applicable
Withdrawal Assessment of Alcohol
Withdrawal Assessment Completed?: Not applicable
Course
Orders/Labs/Results
Orders:
Orders
10/18/24 01:15
Ketorolac [Toradol] 30 mg IM NOW STA
Vital Signs
Initial and Last Documented VS:
Initial Vital Signs
Temp Pulse Resp BP Pulse Ox
36.4 C 74 18 116/82 100
10/18/24 00:34 10/18/24 00:34 10/18/24 00:34 10/18/24 00:34 10/18/24 00:34
Last Documented Vital Signs
Temp Pulse Resp BP Pulse Ox
36.4 C 74 18 116/82 100
10/18/24 00:34 10/18/24 00:34 10/18/24 00:34 10/18/24 00:34 10/18/24 00:34
MDM/Problems Addressed
Differential Diagnosis Includes:
Rotator cuff tendinopathy/tear, arthritis, shoulder sprain
MDM/Problems Addressed:
28-year-old female presents for evaluation of acute on chronic pain in her left shoulder related to rotator cuff injury. She had an MRI a few years ago which I reviewed showed supraspinatus injury. No acute trauma and good range of motion�in my
judgment no indication for emergent reimaging. Will treat symptomatically, refer to Ortho for follow-up. Patient comfortable this plan. All questions answered.
*Pulse Oximetry
SaO2: 100
Patient hypoxic: no (100%)
*Critical Care Note
Total Time (30-74mins, 75-104mins- exclusive of procedures): Not Applicable
Data Reviewed
Source: patient
Further Testing Considered But Not Given:
Considered x-ray
ED Attending Note
-
Portions of this chart may have been created with voice recognition software.� Occasional wrong word or��sound alike� substitutions may have occurred due to the inherent limitations of voice recognition software.
Discharge Plan
Departure
Patient with high blood pressure during this ER visit?: No
Discharge Problem:
Left shoulder pain
Instructions: Rotator cuff injury, Shoulder pain - ED discharge instructions
Prescriptions:
New
naproxen 500 mg tablet
500 mg PO BID Qty: 30 0RF
acetaminophen 500 mg tablet
500 mg PO Q6H PRN (Reason: Pain) Qty: 30 0RF
No Action
sertraline 25 MG tablet
75 mg PO DAILY
doxepin 10 mg Capsule
10 mg PO HSPRN PRN (Reason: sleep)
albuterol sulfate 2.5 mg /3 mL (0.083 %) solution for nebulization
2.5 mg inhalation R QIDPRN PRN (Reason: shortness of breath or wheezing)
albuterol sulfate 90 mcg/actuation HFA aerosol inhaler
2 puff inhalation R Q6HPRN PRN (Reason: shortness of breath or wheezing)
albuterol sulfate 90 mcg/actuation HFA aerosol inhaler
2 puff inhalation Q6H PRN (Reason: cough) Qty: 6.7 0RF
ondansetron 4 mg tablet,disintegrating
4 mg PO Q8H PRN (Reason: nausea and vomiting) 5 Days Qty: 20 0RF
Referrals:
Liam Urbano MD [Active, Orthopedics] - Call in 1-3 days for appt
Stand Alone Forms: Return to Work
Activity Restrictions/Additional Instructions:
Thank you for visiting the Emergency Department at [facility].
1. Please schedule a follow up appointment as directed. Call first thing tomorrow morning to make an appointment.
2. If indicated, please take your medications as instructed and indicated on discharge paperwork.
3. If any of your symptoms do not improve, or persist, or become more severe within 6-12 hours, please return to the emergency department for further care.
4. Please return to the emergency department if you develop a headache, neck pain/stiffness, fever greater than 100.4F, chest pain, shortness of breath, persistent nausea, vomiting, slurred speech, difficulty walking, numbness/tingling, weakness,
signs of infection or any other symptoms that are worrisome to you.
Please call [phone] if you have any questions.
Interventions
Interventions:
*Risk Screen - Suicide Last Done: 10/18/24 00:34
*Neglect/Abuse Screening Last Done: 10/18/24 00:34
Discharge Date and Time
Print Language: HUNGARIAN
[2024-10-18] MEDS: TORADOL 30 MG IM (01:24)
== END 2024-10-18 01:50 | disposition home or self-care (01) ==
LOC: EMR 00:32
PROVIDERS: EMERGENCY PHYSICIAN Emergency Medicine
DX: M25.512 Pain in left shoulder (principal); J45.909 Unspecified asthma, uncomplicated; F32.A Depression, unspecified; K58.9 Irritable bowel syndrome, unspecified; G43.909 Migraine, unspecified, not intractable, without status migrainosus
CPT/HCPCS: 99284; 96372

== ENCOUNTER 2025-01-20 00:32 | Emergency (ER) | payer SELFPAY ==
[2025-01-20 00:34] VITALS: BP 114/84
--- NOTE | 2025-01-20 00:53 | ED.GENMED ---
History of Present Illness
General
Chief Complaint: Breathing Problem
Source: patient
Time Seen by Provider: 01/20/25 00:45
History of Present Illness
History of Present Illness:
29-year-old female presents to the emergency room complaining of shortness of breath. Patient does have a history of asthma. She typically lives at school but does come home on weekends. Her grandmother recently moved into her family home and is
a heavy smoker. Patient believes the exposure to the cigarette smoke has caused her to feel more short of breath. She used her albuterol metered-dose inhaler at home without much improvement. Patient denies any fever, chills, nausea or vomiting.
Patient had an exacerbation last weekend as well.
Past History
Past History
ED Past Medical History: Asthma, Psychiatric (Depression) and Other (Irritable bowel syndrome, IBS, anemia, Migraines)
ED Past Surgical History: Other (Dental surgeries)
Social History
Tobacco: Non-smoker
Alcohol: None
Drug: None
Personal: Single
Living: with family
Employment: Employed
Family History
Family History: Other (Noncontributory)
Phy Exam
Physical Exam
Physical Exam:
General: Awake, Alert, Oriented X3. No acute distress.
Vitals: unremarkable
Head: Atraumatic
Eyes: Pupils equal, EOMI
Throat: Airway intact, no exudates
Neck: Trachea midline
Lungs: Few expiratory wheezes, mildly decreased breath sounds
Heart: Regular rate, no murmurs
Neuro: Nonfocal
Skin: Warm, dry, no rash
Extremities: pulses equal b/l, no edema
Course
Orders/Labs/Results
Orders:
Orders
01/20/25 00:52
Ipratropium/Albuterol Sulfate [Duoneb] 3 ml INH R NOW STA
Prednisone [Deltasone] 50 mg PO NOW STA
Vital Signs
Initial and Last Documented VS:
Initial Vital Signs
Temp Pulse Resp BP Pulse Ox
97.4 F 80 20 114/84 100
01/20/25 00:34 01/20/25 00:34 01/20/25 00:34 01/20/25 00:34 01/20/25 00:34
Last Documented Vital Signs
Temp Pulse Resp BP Pulse Ox
97.4 F 80 20 101/54 100
01/20/25 00:34 01/20/25 00:34 01/20/25 00:34 01/20/25 01:17 01/20/25 01:17
MDM/Problems Addressed
Differential Diagnosis Includes:
Asthma exacerbation, URI
MDM/Problems Addressed:
Patient feels better after nebs. Will discharge on a short course of steroids. Encouraged to avoid room still with cigarette smoke
*Pulse Oximetry
SaO2: 100
Oxygen Mode of Delivery: Room air
Patient hypoxic: no
*Critical Care Note
Total Time (30-74mins, 75-104mins- exclusive of procedures): Not Applicable
ED Attending Note
-
Portions of this chart may have been created with voice recognition software.� Occasional wrong word or��sound alike� substitutions may have occurred due to the inherent limitations of voice recognition software.
Discharge Plan
Departure
Patient Disposition: Home (Routine Discharge)
Date of Disposition: 01/20/25
Time of Disposition: 01:56
Patient with high blood pressure during this ER visit?: No
Condition: Good
Discharge Problem:
Asthma exacerbation
Instructions: Asthma, Adult (DC)
Prescriptions:
New
prednisone 20 mg tablet
40 mg PO DAILY Qty: 8 0RF
No Action
sertraline 25 MG tablet
75 mg PO DAILY
doxepin 10 mg Capsule
10 mg PO HSPRN PRN (Reason: sleep)
albuterol sulfate 2.5 mg /3 mL (0.083 %) solution for nebulization
2.5 mg inhalation R QIDPRN PRN (Reason: shortness of breath or wheezing)
albuterol sulfate 90 mcg/actuation HFA aerosol inhaler
2 puff inhalation R Q6HPRN PRN (Reason: shortness of breath or wheezing)
albuterol sulfate 90 mcg/actuation HFA aerosol inhaler
2 puff inhalation Q6H PRN (Reason: cough) Qty: 6.7 0RF
ondansetron 4 mg tablet,disintegrating
4 mg PO Q8H PRN (Reason: nausea and vomiting) 5 Days Qty: 20 0RF
naproxen 500 mg tablet
500 mg PO BID Qty: 30 0RF
acetaminophen 500 mg tablet
500 mg PO Q6H PRN (Reason: Pain) Qty: 30 0RF
Referrals:
UNKNOWN - PT DOES,NOT KNOW [Family Provider]
Interventions
Interventions:
*Risk Screen - Suicide Last Done: 01/20/25 00:34
*General Assessment Last Done: 01/20/25 01:03
*Neglect/Abuse Screening Last Done: 01/20/25 00:34
*ED- Fall Risk Assessment Last Done: 01/20/25 01:03
*ED COVID-19 Vaccine History Last Done: 01/20/25 01:03
*ED Influenza Vaccine History Last Done: 01/20/25 01:03
ED- Cardiac Assessment Last Done: 01/20/25 01:03
ED- Pulmonary Assessment Last Done: 01/20/25 01:03
Discharge Date and Time
Print Language: PERSIAN
[2025-01-20] MEDS: DELTASONE 50 MG PO (00:57)
[2025-01-20] MEDS: DUONEB 3 ML INH (00:58)
[2025-01-20 00:59] VITALS: BMI 19.6
[2025-01-20 01:17] VITALS: BP 101/54
== END 2025-01-20 02:23 | disposition home or self-care (01) ==
LOC: EMR 00:32
PROVIDERS: EMERGENCY PHYSICIAN Emergency Medicine
DX: J45.901 Unspecified asthma with (acute) exacerbation (principal); F32.A Depression, unspecified; K58.9 Irritable bowel syndrome, unspecified; Z77.22 Contact with and (suspected) exposure to environmental tobacco smoke (acute) (chronic)
CPT/HCPCS: 99283; 94640